=== PATIENT | female | born 1955 | race Caucasian/White ===

== ENCOUNTER 2017-05-26 17:15 | Emergency (ER) | payer BC ==
[2017-05-26 17:23] VITALS: BP 155/103
[2017-05-26] MEDS ORDERED: Lidocaine 1% 20 ML MDV INJECT ONE (17:36)
[2017-05-26] MEDS ORDERED: Bacitracin/Neomycin/Polymyxin B Oint 0.9 GM U/D Packet TOP ONE (17:48)
--- NOTE | 2017-05-26 17:57 | EDM.PDOC ---
ED HPI GENERAL MEDICAL PROBLEM - General Chief Complaint: Laceration Stated Complaint: LACERATION Time Seen by Provider: 05/26/17 17:35 Source of Information: Reports: Patient History Limitations: Reports: No Limitations - History of Present Illness INITIAL COMMENTS - FREE TEXT/NARRATIVE: Patient presents to ER with a laceration to the index finger. States was cutting up potatoes for supper when slipped with the knife. She did apply pressure and had it wrapped to control the bleeding while she presented here. Has good range of motion with her finger. Tetanus up to date. Onset: Today, Sudden Duration: Hour(s): Location: Reports: Upper Extremity, Left Quality: Reports: Throbbing Severity: Mild Associated Symptoms: Reports: No Other Symptoms Left 2-Index finger Pain Score (Numeric/FACES): 5 - Related Data Allergies Allergy/AdvReac Type Severity Reaction Status Date / Time No Known Allergies Allergy Verified 05/26/17 17:23 Home Meds: Home Meds Cholecalciferol (Vitamin D3) [Vitamin D-3] 2,000 unit PO DAILY 04/17/14 [History ] Levothyroxine Sodium 50 mcg PO DAILY 04/17/14 [History] Magnesium Oxide [Magnesium] 1 tab PO DAILY 04/17/14 [History] Multivitamin [Multi Vitamin Daily] 1 tab PO DAILY 04/17/14 [History] Rosuvastatin Calcium [Crestor] 10 mg PO DAILY 04/17/14 [History] Pantoprazole [Pantoprazole Sodium] 20 mg PO DAILY 05/26/17 [History] Past Medical History Cardiovascular History: Reports: High Cholesterol Endocrine/Metabolic History: Reports: Hyperthyroidism - Past Surgical History GI Surgical History: Reports: Cholecystectomy Female Surgical History: Reports: Hysterectomy, Oophorectomy Social & Family History - Tobacco Use Smoking Status *Q: Never Smoker - Caffeine Use Caffeine Use: Reports: Coffee - Recreational Drug Use Recreational Drug Use: No ED ROS GENERAL - Review of Systems Review Of Systems: ROS reveals no pertinent complaints other than HPI. ED EXAM, SKIN/RASH Exam: See Below Exam Limited By: No Limitations General Appearance: Alert, WD/WN, No Apparent Distress Extremities: Normal Range of Motion Neurological: Alert, Oriented Psychiatric: Normal Affect, Normal Mood Skin: Warm, Dry Location, Skin: Upper Extremity, Left Characteristics: Linear ED SKIN PROCEDURES - Laceration/Wound Repair Left Finger Lac/Wound length In cm: 1 Appearance: Superficial, Linear Distal NVT: Neuro & Vascular Intact Anesthetic Type: Local Local Anesthesia - Lidocaine (Xylocaine): 1% Plain Local Anesthetic Volume: 2cc Exploration/Debridement/Repair: Wound Explored Closed with: Sutures Suture Size: other (5-0) # of Sutures: 3 Suture Type: Nylon, Interrupted Sterile Dressing Applied: Nurse Tetanus Status Addressed: Yes Complications: No Course - Vital Signs Last Recorded V/S: Last Vital Signs Temp 97.6 F 05/26/17 17:21 Pulse 98 05/26/17 17:21 Resp 16 05/26/17 17:21 BP 155/103 H 05/26/17 17:21 Pulse Ox 97 05/26/17 17:21 - Orders/Labs/Meds Meds: Medications Discontinued Medications Generic Name Dose Route Start Last Admin Trade Name Diogenesq PRN Reason Stop Dose Admin Lidocaine HCl 20 ml 05/26/17 17:36 Xylocaine 1% INJECT 05/26/17 17:37 ONETIME ONE Neomycin/Polymyxin/Bacitracin 1 each 05/26/17 17:48 Triple Antibiotic Oint TOP 05/26/17 17:49 ONETIME ONE Departure - Departure Time of Disposition: 17:55 Disposition: Home, Self-Care 01 Condition: Good Clinical Impression: Laceration - Discharge Information Instructions: Laceration Care, Adult, [id number] Referrals: Tenzin Galeas MD [Primary Care Provider] - Forms: ED Department Discharge Additional Instructions: 1. Keep wound clean and dry 2. Triple antibiotic ointment for first 3 days, then may switch to vaseline if needed 3. Monitor for any symptoms of infection 4. Sutures out in 10 days 5. Call with any questions
== END 2017-05-26 18:00 | disposition home or self-care (01) ==
LOC: CC.ED 17:15
DX: S61.211A Laceration without foreign body of left index finger without damage to nail, initial encounter (principal); E78.00 Pure hypercholesterolemia, unspecified; E05.90 Thyrotoxicosis, unspecified without thyrotoxic crisis or storm; Z79.899 Other long term (current) drug therapy; W26.0XXA Contact with knife, initial encounter; Z90.49 Acquired absence of other specified parts of digestive tract
CPT/HCPCS: 12001; 99282